=== PATIENT | male | born 1965 | race African-American/Black ===

== ENCOUNTER 2024-07-22 09:56 | Emergency (ER) | payer OTHER ==
[~2024-07-22] VITALS: Ht 182.9 cm; Wt 123.0 kg
[~2024-07-22 09:56] MED LIST: AMLO10TA80 PO; ASPI-1406 PO; DIVA250T4 PO; LIP40 PO; RISP05 PO
[2024-07-22 09:59] VITALS: TEMP 36.9; O2SAT 97
[2024-07-22 11:53] LABS: CARBON DIOXIDE 28 mEq/L (21-32); CHLORIDE 99 mEq/L (98-107); SODIUM 135 mEq/L (136-145)
[2024-07-22 11:54] LABS: CALCIUM 9.2 mg/dL (8.7-10.4)
[2024-07-22 11:59] LABS: UREA NITROGEN BLOOD 13 mg/dL (9-23)
[2024-07-22 12:00] LABS: GLUCOSE 319 mg/dL (70-105)
[2024-07-22 12:01] LABS: ALANINE AMINOTRANSFERASE 19 IU/L (10-49); ALBUMIN 4.2 g/dL (3.2-4.8); ASPARTATE AMINOTRANSFERASE 20 IU/L (<34); BILIRUBIN TOTAL 0.3 mg/dL (0.1-1.0); PROTEIN TOTAL 7.9 g/dL (6.0-8.3)
[2024-07-22 13:31] VITALS: BP 127/80; PULSE 82; RESP 16; O2SAT 97
== END 2024-07-22 14:06 | disposition home or self-care (01) ==
LOC: ER 10:00
DX: E72.51 Non-ketotic hyperglycinemia (principal); I10 Essential (primary) hypertension; Z79.82 Long term (current) use of aspirin; Z79.899 Other long term (current) drug therapy; Z86.73 Personal history of transient ischemic attack (TIA), and cerebral infarction without residual deficits; V89.2XXA Person injured in unspecified motor-vehicle accident, traffic, initial encounter; Y93.89 Activity, other specified; Y92.89 Other specified places as the place of occurrence of the external cause; Y99.8 Other external cause status
CPT/HCPCS: 36415; 80053; 99291